=== PATIENT | female | born 1995 | race Caucasian/White ===

== ENCOUNTER → 2016-06-28 | Outpatient (REF) | payer OTHER | LOC: M SFHCLERA 13:43 | PROVIDERS: ATTEND Family Medicine | DX: R35.0 Frequency of micturition (principal) ==

== ENCOUNTER 2016-08-24 17:00 | Emergency (ER) | payer OTHER ==
[~2016-08-24] VITALS: Ht 152.4 cm; Wt 56.7 kg
[2016-08-24] MEDS ORDERED: ZYRT10CA PO (17:15)
[2016-08-24] MEDS ORDERED: ONDANSETRON 4MG/2ML VIAL (J2405) IV ONE (18:30)
[2016-08-24] MEDS ORDERED: MORPHINE 4 MG/ML 1ML SYRINGE IV ONE (18:30)
[2016-08-24 18:37] LABS: CONTROL LINE UCG INT CTR LINE PRESENT
[2016-08-24 19:16] LABS: BASO % 0.3 % (0.0-1.0); EOS % 0.8 % (0.0-3.0); LARGE UNSTAINED CELL % 0.7 % (0.0-4.0); LYMPH # 0.6 K/mm3 (1.5-6.5); LYMPH % 11.1 % (24.0-44.0); MEAN CORPUSCULAR HEMOGLOBIN 31.8 pg (27.0-33.0); MEAN CORPUSCULAR HGB CONC 32.8 g/dl (32.0-36.5); MEAN CORPUSCULAR VOLUME 96.9 fl (80.0-96.0); MONO # 0.2 K/mm3 (0.0-0.8); MONO % 3.5 % (0.0-5.0); NEUTROPHILS # 4.2 K/mm3 (1.8-7.7); NEUTROPHILS % 83.6 % (36.0-66.0); PLATELET COUNT, AUTOMATED 130 k/mm3 (150-450); RED CELL DISTRIBUTION WIDTH 11.9 % (11.5-14.5)
[2016-08-24 19:37] LABS: ALBUMIN/GLOBULIN RATIO 1.21 (1.00-1.93); ALKALINE PHOSPHATASE 54 U/L (45-117); ALT/SGPT 18 U/L (12-78); AMYLASE 76 U/L (25-115); ANION GAP 7 MEQ/L (8-16); AST/SGOT 11 U/L (15-37); BILIRUBIN,DIRECT 0.2 MG/DL (0.0-0.2); BILIRUBIN,TOTAL 0.6 MG/DL (0.2-1.0); BLOOD UREA NITROGEN 9 MG/DL (7-18); CALCIUM LEVEL 8.6 MG/DL (8.5-10.1); CARBON DIOXIDE LEVEL 27 MEQ/L (21-32); CHLORIDE LEVEL 105 MEQ/L (98-107); CREATININE FOR GFR 0.79 MG/DL (0.55-1.02); GLOMERULAR FILTRATION RATE > 60.0 (>60); GLUCOSE, FASTING 90 MG/DL (70-105); POTASSIUM SERUM 3.9 MEQ/L (3.5-5.1); SODIUM LEVEL 139 MEQ/L (136-145); TOTAL PROTEIN 7.3 GM/DL (6.4-8.2)
[2016-08-24] MEDS ORDERED: ISOVUE-370 76% 100ML VIAL (Q9967) As Ordered ONE (19:52)
--- NOTE | 2016-08-24 20:29 | REP ---
Clinical: Right-sided abdominal pain. Technique: Axial contrast enhanced images from the lung bases to the pubic symphysis using oral and 100 ml Isovue 370 intravenous contrast material with coronal and sagittal re-formations. Findings: Lung bases clear. Visualized heart and pericardium normal. Liver, spleen, pancreas, gallbladder, bilateral adrenal glands and kidneys are normal. The enteric system is without obstruction or acute inflammatory process. Normal terminal ileum and appendix identified in the right lower quadrant. Pelvis demonstrates normal bladder and uterus/right adnexa. An ovoid cystic structure in the left adnexa with central presumed calcified structure measures approximately 2.1 cm maximal diameter and may represent dermoid/teratoma. No pelvic fluid. No adenopathy. No free air. Vasculature normal. Musculoskeletal structures intact. Impression: 1. Suspected 2.1 cm left adnexal teratoma/dermoid cyst. 2. No acute intra-abdominal or pelvic pathology appreciated. Signed by Pb Verdin MD 08/24/2016 08:20 P
[2016-08-24 20:45] VITALS: BP 119/74
[2016-08-24] MEDS ORDERED: IBUP600T26 PO (21:16)
--- NOTE | 2016-08-25 07:16 | ED PDOC ---
Post-Departure Follow-Up dr lorenzo faxed formal report of ct abd/p for fu Shanell Singleton MD August 25, 2016 07:16
== END 2016-08-24 21:23 | disposition home or self-care (01) ==
LOC: M ED 18:12
DX: N83.8 Other noninflammatory disorders of ovary, fallopian tube and broad ligament (principal)
CPT/HCPCS: 36415; 74177; 80048; 80076; 81001; 82150; 83690; 84703; 85025; 96374; 96375; 99284; J2405; Q9967

== ENCOUNTER 2016-08-27 06:19 | Emergency (ER) | payer OTHER ==
[~2016-08-27] VITALS: Ht 152.4 cm; Wt 56.7 kg
[~2016-08-27 06:19] MED LIST: IBUP600T26 PO; ZYRT10CA PO
[2016-08-27] MEDS ORDERED: OXYC1TAB23 PO (06:40)
[2016-08-27] MEDS ORDERED: NORCO, ANEXSIA 5/325MG TABLET (HYDROcodone/ACETAMINOPHEN) PO ONE (07:00)
[2016-08-27] MEDS ORDERED: ONDANSETRON 4MG/2ML VIAL (J2405) IV ONE (07:00)
[2016-08-27] MEDS ORDERED: KETOROLAC 30 MG/ML VIAL (J1885) IV ONE (07:00)
[2016-08-27 07:50] LABS: BASO % 0.6 % (0.0-1.0); EOS # 0.1 K/mm3 (0.0-0.50); EOS % 1.1 % (0.0-3.0); LARGE UNSTAINED CELL # 0.1 K/mm3 (0.0-0.4); LARGE UNSTAINED CELL % 1.3 % (0.0-4.0); LYMPH # 1.2 K/mm3 (1.5-6.5); LYMPH % 17.9 % (24.0-44.0); MEAN CORPUSCULAR HEMOGLOBIN 32.6 pg (27.0-33.0); MEAN CORPUSCULAR HGB CONC 33.8 g/dl (32.0-36.5); MEAN CORPUSCULAR VOLUME 96.5 fl (80.0-96.0); MONO # 0.3 K/mm3 (0.0-0.8); MONO % 5.2 % (0.0-5.0); NEUTROPHILS # 4.7 K/mm3 (1.8-7.7); NEUTROPHILS % 73.8 % (36.0-66.0); PLATELET COUNT, AUTOMATED 160 k/mm3 (150-450); RED CELL DISTRIBUTION WIDTH 12.1 % (11.5-14.5); WHITE BLOOD COUNT 6.4 K/mm3 (4.0-10.0)
[2016-08-27 07:54] LABS: CALCIUM OXALATE CRYSTALS SMALL
[2016-08-27 07:55] LABS: CONTROL LINE UCG INT CTR LINE PRESENT
[2016-08-27 08:09] LABS: ALBUMIN/GLOBULIN RATIO 1.38 (1.00-1.93); ALKALINE PHOSPHATASE 54 U/L (45-117); ALT/SGPT 21 U/L (12-78); ANION GAP 7 MEQ/L (8-16); AST/SGOT 14 U/L (15-37); BILIRUBIN,DIRECT 0.1 MG/DL (0.0-0.2); BILIRUBIN,TOTAL 0.4 MG/DL (0.2-1.0); BLOOD UREA NITROGEN 10 MG/DL (7-18); CALCIUM LEVEL 8.6 MG/DL (8.5-10.1); CARBON DIOXIDE LEVEL 29 MEQ/L (21-32); CHLORIDE LEVEL 106 MEQ/L (98-107); CREATININE FOR GFR 0.85 MG/DL (0.55-1.02); GLOMERULAR FILTRATION RATE > 60.0 (>60); GLUCOSE, FASTING 97 MG/DL (70-105); POTASSIUM SERUM 3.5 MEQ/L (3.5-5.1); SODIUM LEVEL 142 MEQ/L (136-145); TOTAL PROTEIN 6.9 GM/DL (6.4-8.2)
[2016-08-27] MEDS ORDERED: CIPR500T89 PO (08:15)
[2016-08-27] MEDS ORDERED: NORCOTAB PO (08:15)
[2016-08-27] MEDS ORDERED: NS 1,000 ML IV ONE (08:15)
[2016-08-27] MEDS ORDERED: CIPROFLOXACIN 400 MG in APPROPRIATE DILUENT 1 EA IV ONE (08:15)
[2016-08-27 10:14] VITALS: BP 104/60
== END 2016-08-27 10:18 | disposition home or self-care (01) ==
LOC: M ED 07:16
DX: N10 Acute pyelonephritis (principal); R01.1 Cardiac murmur, unspecified; Z79.899 Other long term (current) drug therapy
CPT/HCPCS: 80048; 80076; 81001; 83690; 84703; 85025; 87086; 96361; 96365; 96375; 99283; J0744; J1885; J2405; J3360

== ENCOUNTER 2016-08-27 23:49 | Emergency (ER) | payer OTHER ==
[~2016-08-27] VITALS: Ht 165.1 cm; Wt 56.7 kg
[~2016-08-27 23:49] MED LIST changes: +CIPR500T89 PO; +NORCOTAB PO; +OXYC1TAB23 PO
[2016-08-28] MEDS ORDERED: KETOROLAC 30 MG/ML VIAL (J1885) IV ONE (01:30)
[2016-08-28] MEDS ORDERED: HYDROmorphone HCL 1 MG/ML SYRINGE (J1170) IV ONE (01:30)
[2016-08-28] MEDS ORDERED: ONDANSETRON 4MG/2ML VIAL (J2405) IV ONE (02:15)
[2016-08-28 02:23] LABS: BASO % 0.3 % (0.0-1.0); EOS # 0.1 K/mm3 (0.0-0.50); EOS % 0.9 % (0.0-3.0); LARGE UNSTAINED CELL # 0.1 K/mm3 (0.0-0.4); LARGE UNSTAINED CELL % 1.2 % (0.0-4.0); LYMPH % 14.5 % (24.0-44.0); MEAN CORPUSCULAR HEMOGLOBIN 32.6 pg (27.0-33.0); MEAN CORPUSCULAR HGB CONC 33.9 g/dl (32.0-36.5); MEAN CORPUSCULAR VOLUME 96.3 fl (80.0-96.0); MONO # 0.4 K/mm3 (0.0-0.8); MONO % 5.5 % (0.0-5.0); NEUTROPHILS # 5.4 K/mm3 (1.8-7.7); NEUTROPHILS % 77.7 % (36.0-66.0); PLATELET COUNT, AUTOMATED 140 k/mm3 (150-450); RED CELL DISTRIBUTION WIDTH 11.9 % (11.5-14.5); WHITE BLOOD COUNT 6.9 K/mm3 (4.0-10.0)
--- NOTE | 2016-08-28 02:30 | REPUSA ---
CLINICAL HISTORY: Abdominal pain. TECHNIQUE: Multiple axial, sagittal and coronal CT images were obtained through the abdomen and pelvi s without administration of oral or IV contrast material. COMMENTS: The liver is of uniform attenuation without mass or defect. There is no intra or extrahepatic biliary ductal dilatation. The spleen is normal. The gallbladder is within normal limits. The pancreas is of normal contour and attenuation characteristics. There is no evidence of adrenal mass. 3.5 mm obstructing stone in the left ureterovesical junction. Mild left hydroureteronephrosis. Mild diffuse thickening of the wall of the bladder. 1.5 cm calcified uterine fibroid. Uncomplicated clonic diverticulosis. There is no evidence for appendicitis. There is no bowel wall thickening. No evidence for small or la rge bowel obstruction. There is no evidence of abdominal ascites or lymphadenopathy. There is no evidence of intrinsic or extrinsic bladder mass. There is no pelvic ascites or lymphadeno francisco. Images of the lung bases show no evidence of pleural or parenchymal mass. There are no pleural effusi ons. The bony structures are free of lytic or blastic lesions. IMPRESSION: Obstructing stone at the left ureterovesical junction. Mild left hydroureteronephrosis. Calcified uterine fibroid. Thickened bladder. Underdistention versus mild cystitis. Mild large bowel fecal stasis. Thank you for your kind referral of this patient.
[2016-08-28 02:42] LABS: ANION GAP 8 MEQ/L (8-16); BLOOD UREA NITROGEN 10 MG/DL (7-18); CALCIUM LEVEL 8.6 MG/DL (8.5-10.1); CARBON DIOXIDE LEVEL 28 MEQ/L (21-32); CHLORIDE LEVEL 106 MEQ/L (98-107); CREATININE FOR GFR 0.94 MG/DL (0.55-1.02); GLOMERULAR FILTRATION RATE > 60.0 (>60); GLUCOSE, FASTING 90 MG/DL (70-105); POTASSIUM SERUM 3.4 MEQ/L (3.5-5.1); SODIUM LEVEL 142 MEQ/L (136-145)
[2016-08-28] MEDS ORDERED: NS 1,000 ML IV ONE ×2 (03:00→04:45)
[2016-08-28 06:21] VITALS: BP 122/78
== END 2016-08-28 06:24 | disposition home or self-care (01) ==
LOC: M ED 08-28 01:40
DX: N13.2 Hydronephrosis with renal and ureteral calculous obstruction (principal); D25.9 Leiomyoma of uterus, unspecified; Z79.899 Other long term (current) drug therapy
CPT/HCPCS: 74176; 80048; 85025; 96374; 96375; 99283; J1170; J1885; J2405

== ENCOUNTER 2016-09-02 10:32 | Inpatient (IN) | payer OTHER ==
[~2016-09-02] VITALS: Ht 152.4 cm; Wt 57.3 kg
[2016-09-02] MEDS ORDERED: IBUP600T26 PO (10:40)
[2016-09-02] MEDS ORDERED: METOCLOPRAMIDE INJ 10MG/2ML VIAL (J2765) IV ONE (11:45)
[2016-09-02] MEDS ORDERED: NS 1,000 ML IV ONE (11:45)
[2016-09-02 12:03] LABS: BASO % 0.1 % (0.0-1.0); EOS # 0.1 K/mm3 (0.0-0.50); EOS % 1.4 % (0.0-3.0); LARGE UNSTAINED CELL % 0.4 % (0.0-4.0); LYMPH # 0.4 K/mm3 (1.5-6.5); LYMPH % 3.7 % (24.0-44.0); MEAN CORPUSCULAR HEMOGLOBIN 32.3 pg (27.0-33.0); MEAN CORPUSCULAR HGB CONC 34.7 g/dl (32.0-36.5); MEAN CORPUSCULAR VOLUME 93.1 fl (80.0-96.0); MONO # 0.3 K/mm3 (0.0-0.8); MONO % 3.3 % (0.0-5.0); NEUTROPHILS # 8.2 K/mm3 (1.8-7.7); NEUTROPHILS % 91.2 % (36.0-66.0); PLATELET COUNT, AUTOMATED 151 k/mm3 (150-450)
[2016-09-02 12:16] LABS: CONTROL LINE HCG INT CTR LINE PRESENT
[2016-09-02 12:24] LABS: ALBUMIN 4.1 GM/DL (3.2-5.2); ALBUMIN/GLOBULIN RATIO 1.11 (1.00-1.93); BILIRUBIN,DIRECT 0.1 MG/DL (0.0-0.2); BILIRUBIN,TOTAL 0.5 MG/DL (0.2-1.0); CALCIUM LEVEL 9.5 MG/DL (8.5-10.1); CREATININE FOR GFR 3.71 MG/DL (0.55-1.02); GLOMERULAR FILTRATION RATE 16.3 (>60); POTASSIUM SERUM 3.9 MEQ/L (3.5-5.1); TOTAL PROTEIN 7.8 GM/DL (6.4-8.2)
[2016-09-02] MEDS ORDERED: ONDANSETRON 4MG/2ML VIAL (J2405) IV ONE (12:45)
[2016-09-02] MEDS ORDERED: CETI10TA PO (13:08)
[2016-09-02] MEDS ORDERED: CIPR500T3 PO (13:08)
[2016-09-02] MEDS ORDERED: IBUP800T23 PO (13:08)
[2016-09-02] MEDS ORDERED: MORPHINE 2 MG/ML 1ML SYRINGE IV ONE (13:15)
--- NOTE | 2016-09-02 13:19 | REP ---
Clinical: Renal colic. Comparison: 08/28/2016. Findings: Lung bases are clear. Liver, spleen, pancreas, gallbladder, bilateral adrenal glands and kidneys are normal for noncontrast evaluation. Possible 1 mm nonobstructing left renal calculus (image 43). Prior left-sided obstructive uropathy with 1 mm calculus at the ureterovesicle junction has resolved. The enteric system is without obstruction or acute inflammatory process. Normal terminal ileum and appendix identified in the right lower quadrant. Pelvis demonstrates normal bladder and age-appropriate uterus/adnexa. No pelvic fluid. No ascites. No free air. No adenopathy. Abdominal aorta normal. Musculoskeletal structures intact. Impression: 1. Essentially normal noncontrast CT of the abdomen and pelvis. 2. Possible 1 mm nonobstructing left renal calculus. 3. Prior left-sided obstructive uropathy with 1 mm calculus at the ureterovesicle junction has resolved. Signed by Pb Verdin MD 09/02/2016 01:10 P
[2016-09-02] MEDS ORDERED: ONDANSETRON 4MG/2ML VIAL (J2405) IV PRN (14:15)
[2016-09-02] MEDS ORDERED: MAALOX 30 ML SUSP *UDC PO PRN (14:15)
[2016-09-02] MEDS ORDERED: ACETAMINOPHEN TAB 650MG DOSE (2X325MG) PO PRN (14:15)
[2016-09-02] MEDS ORDERED: MORPHINE 2 MG/ML 1ML SYRINGE IV PRN (14:15)
[2016-09-02 15:20] VITALS: BP 117/81
[2016-09-02] MEDS: NS 1,000 ML IV SCH ×2 (16:29→22:13)
[2016-09-02] MEDS: PANTOPRAZOLE 40MG INJ (PROTONIX) (C9113) IV SCH (16:29)
[2016-09-02] MEDS: CIPROFLOXACIN 200 MG in APPROPRIATE DILUENT 1 EA IV SCH (16:30)
--- NOTE | 2016-09-02 16:41 | HPE ---
DATE OF ADMISSION: 09/02/2016 PRIMARY CARE PHYSICIAN: Dr. Rayne Mckeon CHIEF COMPLAINT: Nausea, vomiting and diarrhea, and abdominal pain. HISTORY OF PRESENT ILLNESS: Ms. Toledo is a 21-year-old female with past medical history of ovarian cyst, as well as hydronephrosis and nephrolithiasis, who presented to the emergency room (ER) due to experiencing abdominal pain as well as several episodes of vomiting, diarrhea and being nauseated. The patient expressed that the symptoms started yesterday when she started having more than 10 episodes of vomiting. The patient expressed that the vomit mostly contained undigested food and bile. However, the patient denies noticing any blood in the vomit. The patient also expressed that the vomit was not projectile. The patient also had several episodes of diarrhea; however, the patient denies noticing any blood in the stool, and it was mostly watery diarrhea. The patient presented to the ER on 08/24 with abdominal pain and again on 08/27/2016, and was diagnosed with pyelonephritis. The patient was started on ciprofloxacin. However, the patient expressed that she has only taken it for four days. Again, the patient presented on 08/28/2016, and a CT which was performed on that day indicated a 3.5 mm obstructing stone in the left ureterovesical junction. The patient was sent home with medications including ibuprofen to help with the pain. The patient expressed that she took ibuprofen last night 800, and before that two days ago, again 800 mg. The patient is also taking Zyrtec. At the time of admission, it was found that the patient has abnormal renal function. ALLERGIES: PENICILLIN causes rash and shortness of breath. PAST MEDICAL HISTORY: 1. History of ovarian cyst. 2. Abdominal pain. 3. Nephrolithiasis. 4. Hydronephrosis. PAST SURGICAL HISTORY: 1. PE tubes 2012. 2. Nasal surgery 2014. HOME MEDICATIONS: - cetirizine 10 mg by mouth at bedtime - ciprofloxacin 500 mg by mouth twice a day - ibuprofen 800 mg by mouth every hours as needed for pain REVIEW OF SYSTEMS: The patient expressed that she has been having fever, chills, and night sweats. However, the patient did not take her temperature. The patient denies weight loss or weight gain. HEENT: The patient denies acute vision or hearing changes. However, the patient expressed that she has been experiencing lightheadedness and dizziness when she was vomiting. The patient denies problem with chewing food or sinusitis. NECK: The patient denies lumps, bumps or decreased range of motion of her neck. HEART: The patient expressed that she has been experiencing palpitations during vomiting; however, the patient denies chest pain, racing or skipping heartbeat. LUNGS: The patient denies shortness of breath or coughing. ABDOMEN: The patient expressed that she has been experiencing abdominal pain mostly in the mid-abdomen area that increased with vomiting. The patient also has diarrhea and nauseated. However, the patient denies any hematochezia, hemoptysis, or melena. NEUROLOGIC: The patient has denies history of transient ischemic attack (TIA), cerebrovascular accident (CVA) or seizure-type activity. PHYSICAL EXAMINATION: VITAL SIGNS: Temperature 98.8, pulse 90, respiratory rate 16, blood pressure 126/90, pulse oximetry 100% on room air. GENERAL APPEARANCE: The patient was lying in bed in no acute distress. The patient was awake, alert, and oriented to time, place, and person. HEENT: Normocephalic, atraumatic. Pupils are equal, reactive to light. Oral mucosa is moist. NECK: Soft, supple. No lymphadenopathy, no thyromegaly, no jugular venous distention (JVD). HEART: Regular rate and rhythm, normal S1, S2. ABDOMEN: Soft, tender to palpation mostly in the mid-abdomen area and the left lower quadrant. Positive bowel sounds in all quadrants. However, no guarding or rebound. EXTREMITIES: No lower extremity edema. Plus two pulses in both lower extremities and normal sensation in both upper and lower extremities. NEUROLOGIC: Cranial nerves II through XII intact. No focal deficiencies. LABORATORY DATA: White blood cells 9, red blood cells 4.11, hemoglobin 13.3, hematocrit 38.3, MCV 93.1, MCH 32.3, MCHC 34.7, RDW 12, platelet count 151. Neutrophil percentage 91.2, lymphocyte percentage 3.7, monocyte percentage 3.3, eosinophil percentage 1.4, basophils percentage 0.1, leukocyte percentage 0.4. Sodium 139, potassium 3.9, chloride 106, carbon dioxide 24, anion gap 9, BUN 19, creatinine 3.71, glomerular filtration rate 16.3, fasting glucose 153, calcium 9.5, total bilirubin 0.5, direct bilirubin 0.1, AST 18, ALT 21, alkaline phosphatase 59, protein 7.8, albumin 4.1. HCG negative. UA: Urine color yellow. Urine appearance hazy. Urine pH 6. Urine specific gravity 1.009. Urine protein negative. Urine glucose negative. Urine ketones 1+. Urine blood negative. Urine nitrite negative. Urine bilirubin negative. Urine urobilinogen 0.2, urine leukocyte esterase negative, urine white blood cells 10, urine red blood cells 2, urine hyaline casts zero, urine bacteria 1+, urine squamous epithelial 8, urine mucus small. IMAGING: CT abdomen and pelvis without contrast essentially normal noncontrast CT of the abdomen and pelvis. Possible 1 mm nonobstructing left renal calculus. Prior left-side obstructive uropathy with 1 mm calculus at the ureterovesical junction has resolved. ASSESSMENT AND PLAN: 1. Acute renal failure. This is possibly secondary to post azotemia caused by uropathy secondary to renal calculus that has been passed. Also, it could be secondary to medication including ibuprofen. We have stopped all the nephrotoxic medications. Will continue patient on ceftriaxone; however, we switched to intravenous (IV). I have consulted Dr. Paul. Appreciate Dr. Paul's recommendation. At the patient is on IV fluid. The patient also on a clear diet. We will continue monitoring the patient for any abnormal symptoms. 2. Gastrointestinal (GI) prophylaxis. The patient is on Protonix 40 mg every 24 hours IV. Also, we will continue the patient on Carafate 1 gram before meals by mouth. 3. Seasonal allergies. We will continue the patient on Zyrtec 10 mg at bedtime by mouth. 4. Deep venous thrombosis (DVT) prophylaxis. We will continue the patient on heparin 5000 units every 12 hours subcutaneously. 5. Nausea and vomiting. At this time, the patient is stable. We have started the patient on Mylanta. The patient is also on Protonix and Zofran, as well as Carafate. 6. Diarrhea. We have ordered GI panel and the result is pending at this time. My preceptor for this patient encounter was Dr. Nadege Anton. The preceptor was physically present in the building during the encounter and was fully available as needed. All aspects of the patient interview, examination, medical decision making process, and medical care plan development were reviewed and approved by the preceptor. The preceptor is aware and concurs with the plan as stated in the body of this note and will attest to such by his/her co-signature.
[2016-09-02] MEDS: SUCRALFATE 1 GM TAB PO SCH (18:09)
[2016-09-02] MEDS: HEPARIN SOD (PORCINE) 5000 UNITS/ML VIAL SQ SCH (18:09)
--- NOTE | 2016-09-02 19:46 | REP ---
Clinical: Abnormal renal function with recently passed left ureteral stone. Comparison: CT dated 09/02/2016, 08/28/2016. Findings: The bilateral kidneys are normal in contour, size, echogenicity and reniform shape without hydronephrosis, nephrolithiasis, cystic or renal mass lesion. No perinephric fluid collections are identified. Right kidney measures 11.3 x 5.1 x 5.7 cm. Left kidney measures 10.7 x 5.5 x 5.2 cm. The distal left ureter approaching the bladder appears mildly prominent but may be secondary to the recently passed stone and associated prior hydroureteronephrosis. The bladder is normal and bilateral ureteral jets are identified. Impression: Normal bilateral kidneys without hydronephrosis. Signed by Pb Verdin MD 09/02/2016 07:38 P
[2016-09-02 20:00] VITALS: BP 121/76
[2016-09-02] MEDS: PERCOCET 5MG/325MG TAB PO PRN (20:16)
[2016-09-02] MEDS: CETIRIZINE (ZyrTEC) 10 MG TAB PO SCH (20:16)
[2016-09-02] MEDS ORDERED: CIPROFLOXACIN 500 MG TAB PO SCH (21:00)
[2016-09-03] MEDS: NS 1,000 ML IV SCH ×2 (04:35→11:35)
[2016-09-03] MEDS: CIPROFLOXACIN 200 MG in APPROPRIATE DILUENT 1 EA IV SCH ×2 (04:36→15:38)
[2016-09-03 04:44] VITALS: BP 120/75
[2016-09-03] MEDS: HEPARIN SOD (PORCINE) 5000 UNITS/ML VIAL SQ SCH ×2 (05:11→18:00)
[2016-09-03 07:01] LABS: MEAN CORPUSCULAR HEMOGLOBIN 31.8 pg (27.0-33.0); MEAN CORPUSCULAR HGB CONC 33.6 g/dl (32.0-36.5); MEAN CORPUSCULAR VOLUME 94.6 fl (80.0-96.0); RED CELL DISTRIBUTION WIDTH 12.2 % (11.5-14.5); WHITE BLOOD COUNT 8.2 K/mm3 (4.0-10.0)
[2016-09-03 07:17] LABS: ALBUMIN 3.3 GM/DL (3.2-5.2); CALCIUM LEVEL 8.2 MG/DL (8.5-10.1); CREATININE FOR GFR 2.54 MG/DL (0.55-1.02); GLOMERULAR FILTRATION RATE 25.2 (>60); MAGNESIUM LEVEL 1.7 MG/DL (1.8-2.4); PHOSPHORUS LEVEL 3.8 MG/DL (2.5-4.9); POTASSIUM SERUM 3.7 MEQ/L (3.5-5.1)
[2016-09-03] MEDS ORDERED: MAG SULF 1GM/100ML (MAG RUN) 1 GM in APPROPRIATE DILUENT 1 EA IV ONE (08:00)
[2016-09-03] MEDS: SUCRALFATE 1 GM TAB PO SCH ×3 (09:29→18:20)
[2016-09-03 09:31] VITALS: BP 114/81
[2016-09-03] MEDS: PERCOCET 5MG/325MG TAB PO PRN (11:34)
--- NOTE | 2016-09-03 13:38 | IPNPDOC ---
Text Note Date of Service The patient was seen on 09/03/16. NOTE Subjective: Patient is a 21 year old female with a PMHx of Ovarian Cyst, Nephrolithiasis (w/ hydronephrosis) who presented to the ER with nausea, vomiting, dairrhea and abdominal pain. She noted her symptoms occurred for 2 days. She had 2 visitis to the ER in the last 1 month. On 08/24 with abdominal pain and was diagnosed with pyelonephritis and was prescribed Ciprofloxacin. She presented on 08/28 again and was found to have a 3.5mm obstructing stone. She was given ibuprofen and sent home. She presents again with abdominal pain and was found to have abnormal renal function and admitted to medical floor. Patient was seen and examined at the bedside. Currently she has no complaints. Objective: Vitals (See below) General: Lying in bed, no acute distress, comfortable, AAOx3 HEENT: NC, AT CVS: RRR, +S1S2 Lungs: Fair air entry b/l, -w/r/r Abdomen: Soft, ND, Mild tenderness at epigastrium, +BSx4 Extremities: +PPx4, - Edema, - Calf tenderness Assessment and plan: 1. Acute renal failure - likely 2/2 pre-renal etiology 2/2 hypovolemia 2/2 vomiting and diarrhea, possibly renal etiology 2/2 medications (ibuprofen), less likely post-renal 2/2 obstruction from stones - Presented with nausea, vomiting, diarrhea and abdominal pain - Physical reveals epigastric tenderness - Labs reveal elevation in Cr from baseline (Baseline of 0.7-0.9) - No elevation in amylase / lipase - FENa of 1.1% - Will avoid nephrotoxic medications - c/w IV fluid hydration - Nephrology (Dr. Paul) on consult - appreciate their input - Will advance diet as tolerated 2. Recent history of pyelonephritis - will complete treatment with Ciprofloxacin 3. Nausea, vomiting and diarrhea - likely 2/2 gastroenteritis - symptoms resolved - GI panel negative - c/w IV fluid hydration - c/w Zofran, Protonix 4. Seasonal allergies - c/w Cetirizine 5. DVT prophylaxis - c/w Heparin VS,Fishbone, I+O VS, Fishbone, I+O Laboratory Tests 09/03/16 06:38 Red Blood Count 3.86 L, Mean Corpuscular Volume 94.6, Mean Corpuscular Hemoglobin 31.8, Mean Corpuscular Hemoglobin Concent 33.6, Red Cell Distribution Width 12.2, Anion Gap 6 L Vital Signs Date Time Temp Pulse Resp B/P (MAP) Pulse Ox O2 Delivery O2 Flow Rate FiO2 09/03/16 12:04 20 09/03/16 09:31 99.3 83 114/81 (92) 99 Room Air I&O- Last 24 Hours up to 6 AM 09/03/16 06:00 Intake Total 3920 ml Output Total 1825 ml Balance 2095 ml ALY COOL MD September 03, 2016 13:38
[2016-09-03] MEDS: PANTOPRAZOLE 40MG INJ (PROTONIX) (C9113) IV SCH (15:39)
[2016-09-03 15:44] VITALS: BP 122/75
[2016-09-03 20:00] VITALS: BP 116/74
[2016-09-03] MEDS: CETIRIZINE (ZyrTEC) 10 MG TAB PO SCH (20:28)
--- NOTE | 2016-09-03 21:09 | CR ---
DATE OF CONSULTATION: 09/03/2016 REQUESTING PHYSICIAN: Ari Groves MD CONSULTING PHYSICIAN: Guerrero Paul MD REASON FOR CONSULTATION: Management of acute kidney injury CHIEF COMPLAINT: The patient presented to the emergency room yesterday with nausea, vomiting, diarrhea and abdominal pain. HISTORY OF PRESENT ILLNESS: Le Toledo is a 21-year-old female with past medical history of nephrolithiasis, history of ovarian cyst and recurrent urinary tract infections (UTIs) in the past. She presented to the emergency room yesterday with pain in the epigastrium, which was radiating to the back; it was almost a 7/10 in intensity associated with nausea and vomiting. She almost had 10 episodes of vomiting. She denies any chills and rigors. She also had some loose stools. There were relieving factors. The patient was unable to keep any food down. The patient also reports that she was seen in the emergency room on August 24 and August 27. She was diagnosed with pyelonephritis and given ciprofloxacin. Later on, she was found to have an obstructing stone on the CAT scan. The patient arrived in the emergency room yesterday; she was found to have a creatine of 3.7. Nephrology was called for help in the management of acute kidney injury. A CAT scan of the abdomen and pelvis done yesterday. The most recent CAT scan showed there was a small nonobstructing 1 mm stone in the left kidney and left-sided ureterovesical junction stone had moved. It was not seen on this imaging. The patient was started on IV fluids and IV antibiotics yesterday. She reports that since yesterday her symptoms are a lot better and her creatine is also coming down. It was 3.7 yesterday; it is down to 2.54 today. PAST MEDICAL HISTORY: 1. Ovarian cyst. 2. Recurrent urinary tract infections (UTIs). 3. Abdominal pain. 4. Kidney stones. PAST SURGICAL HISTORY: History of nasal surgery in 2015. No history of kidney surgery or removal of stones in the past. ALLERGIES: The patient is allergic to PENICILLINS. HOME MEDICATIONS BEFORE ADMISSION: The patient was taking ciprofloxacin 500 mg by mouth twice a day and she was taking ibuprofen 800 mg every 8 hours for pain and she was taking cetirizine 10 mg at bedtime as well. REVIEW OF SYSTEMS: CONSTITUTIONAL: The patient denies any fevers, chills or rigors. EYES: She denies any blurry vision or double vision. ENT: She denies any dysphagia, odynophagia or ear discharge. CARDIOVASCULAR: She denies any chest pain or palpitations. RESPIRATORY: She denies any shortness of breath, wheezing or cough. GASTROINTESTINAL (GI): She reported nausea, vomiting, abdominal pain which is significantly getting better at this time. GENITOURINARY (): The patient reports history of multiple urinary tract infections (UTIs), but she denies any dysuria or hematuria at this time MUSCULOSKELETAL: She denies any muscle aches and pains. CENTRAL NERVOUS SYSTEM: She denies any weakness, strokes or seizures in the past. PSYCHIATRY: She denies any depression or anxiety. SKIN: Denies any rash or ulcers. HEMATOLOGIC/ONCOLOGIC: She denies any history of anemia or easy bruising tendency. PHYSICAL EXAMINATION: GENERAL: The patient is awake, alert, and oriented times three, laying in bed in no apparent distress. VITAL SIGNS: Temperature is 98.9 degrees Fahrenheit, blood pressure is 122/75, pulse is 76, respiratory rate of 18, saturating 99% on room air. Intake and output: Urine output recorded as monitored yesterday, 3 liters so far today since overnight. Weight on the bed scale si 56 kg. HEAD AND NECK EXAM: Extraocular muscles intact. Pupils equally round and reactive to light. Mucous membranes are moist. Neck is supple. There is no jugular venous distension (JVD). CARDIOVASCULAR: S1, S2 regular rate. No murmur, rub or gallop. RESPIRATORY: Chest is clear to auscultation bilaterally. Bilateral equal air entry. No rales or rhonchi. ABDOMEN: Soft, positive bowel sounds. Nontender, no ascites. No organomegaly. No costovertebral angle (CVA) tenderness. EXTREMITIES: No clubbing or cyanosis. Pulses are 2+. CENTRAL NERVOUS SYSTEM: No focal neurological deficit. Power is 5/5 in all extremities. SKIN: No rash or ulcers. LYMPH NODE: No cervical, axillary or inguinal lymphadenopathy. LABORATORY REVIEW: Complete blood count (CBC) showed a white blood count (WBC) of 8.2, hemoglobin 12.2, platelets of 133. Basic metabolic panel (BMP) showed sodium 144, potassium 3.7, chloride 111, bicarbonate 27, BUN is 14, creatine is 2.5, it was 3.7 yesterday, calcium is 8.2, phosphorous is 3.8, magnesium is 1.7. CURRENT IMAGING: A renal ultrasound done yesterday showed normal bilateral kidneys without hydronephrosis. Had a CAT scan done yesterday of the abdomen and pelvis without contrast showed normal contrast of the abdomen and pelvis. 1 mm non-obstructing left renal calculus and left-sided obstructive uropathy has resolved. ASSESSMENT: 21-year-old female had history of kidney stones, admitted this time with intractable nausea and vomiting, acute kidney injury. PLAN: 1. Acute kidney injury. It is most likely secondary to left-sided obstructing uropathy, dehydration, intractable nausea and vomiting, volume depletion and use of ibuprofen and nonsteroidal antiinflammatory drugs (NSAID) pain medications have been stopped. The patient has been started on aggressive IV fluid hydration. Creatine is coming down. I am going to decrease the IV fluid rate to 75 mL an hour. The patient is tolerating the liquid diet as well. Continue to monitor for renal improvement. 2. Intractable nausea and vomiting. I have checked the serum amylase and lipase, they are negative. Pain in the abdomen might have been secondary to left-sided obstructive uropathy. The patient most likely has passed a kidney stone at this time. Continue pain medication at this time. Avoid nonsteroidal antiinflammatory drugs (NSAID) pain medications. Opioids will be okay. Symptoms are getting better. Diet can be advanced to the regular diet. 3. Recurrent urinary tract infections (UTIs). The patient is currently on IV ciprofloxacin. Dose has been adjusted according to the patient's renal function at this time. 4. Hypomagnesemia. The patient has already been given magnesium sulfate 1 gram IV times one does today morning. 5. Kidney stones. The patient has a 1 mm nonobstructing kidney stone on the left side and she most likely passed another kidney stone from left side as well. The patient will need to followup with nephrology services as outpatient. We shall do all the stone work up including 24 hour urine stone risk profile; and depending upon her stone risk profile, we shall put her on medications. 6. Hypocalcemia. I shall give the patient a dose of calcium gluconate 1 gram IV. Thank you for involving us in the care of this patient. We shall be happy to follow the patient along with you tomorrow morning. Plan of care was discussed with the medical billing associate yesterday.
[2016-09-04] VITALS: BP 107/65
[2016-09-04] MEDS: NS 1,000 ML IV SCH (02:04)
[2016-09-04 04:15] VITALS: BP 113/59
[2016-09-04] MEDS: CIPROFLOXACIN 200 MG in APPROPRIATE DILUENT 1 EA IV SCH (04:29)
[2016-09-04] MEDS: HEPARIN SOD (PORCINE) 5000 UNITS/ML VIAL SQ SCH (05:47)
[2016-09-04 06:25] LABS: MEAN CORPUSCULAR HEMOGLOBIN 31.8 pg (27.0-33.0); MEAN CORPUSCULAR VOLUME 93.8 fl (80.0-96.0); RED CELL DISTRIBUTION WIDTH 11.9 % (11.5-14.5)
[2016-09-04 06:39] LABS: ALBUMIN 3.1 GM/DL (3.2-5.2); CALCIUM LEVEL 8.3 MG/DL (8.5-10.1); CREATININE FOR GFR 1.45 MG/DL (0.55-1.02); GLOMERULAR FILTRATION RATE 48.1 (>60); MAGNESIUM LEVEL 1.7 MG/DL (1.8-2.4); PHOSPHORUS LEVEL 3.9 MG/DL (2.5-4.9); POTASSIUM SERUM 3.2 MEQ/L (3.5-5.1)
[2016-09-04] MEDS: SUCRALFATE 1 GM TAB PO SCH (07:40)
[2016-09-04] MEDS ORDERED: MAG SULF 1GM/100ML (MAG RUN) 1 GM in APPROPRIATE DILUENT 1 EA IV ONE (07:45)
[2016-09-04] MEDS ORDERED: POTASSIUM CHLORIDE 10 MEQ SR TABLET PO ONE (07:45)
[2016-09-04 08:00] VITALS: BP 147/77
[2016-09-04 08:30] VITALS: BP 125/64
[2016-09-04] MEDS ORDERED: CALC500C16 PO (10:13)
[2016-09-04] MEDS ORDERED: CALCIUM GLUCONATE 1,000 MG in D5W MINI-BAG PLUS 100 ML IV ONE (11:00)
--- NOTE | 2016-09-04 15:11 | DS.PDOC ---
Discharge Summary General Date of Admission September 02, 2016 at 14:04 Date of Discharge 09/04/16 Attending Physician: ARI GROVES MD Specialist/Consultants Involve PCP: Dr. Rayne Mckeon Discharge Summary Consults: Dr. Guerrero Paul Nephrology Discharge diagnosis: Intractable nausea and vomiting--Resolved Acute kidney injury--Resolving Nephrolithiasis--Resolved Gastroenteritis/Diarrhea--Resolved Secondary diagnosis: Hydronephrosis Pyelonephritis Hypomagnesemia Hypokalemia Hypocalcemia Nephrolithiasis history Ovarian cyst Recurrent urinary tract infections Abdominal pain Hospital course: This is a 21-year-old female who presented to the ED on September 02 for epigastric pain that radiated to the back associated with nausea and vomiting. She also reported some loose stools. Patient was not able to tolerate PO without vomiting. She was then seen in the emergency department on August 24 as well , was diagnosed with pyelonephritis, found to have an obstructing stone on CT scan, and was placed on ciprofloxacin. September 02, the patient was found to have a creatinine of 3.7, and CT scan on 09/02 showed a small nonobstructing 1 mm stone nonobstructing left renal calculus and a left-sided ureterovesical junction stone that has resolved. Urine electrolytes were also obtained and showed a FeNa of 1.1% suggesting possibly a prerenal etiology. Urinalysis was done and remarkable for 1+ ketones, 10 white blood cells, 1+ bacteria, and 8 squamous epithelial cells. A renal ultrasound was also performed which was normal. The patient was admitted for intractable nausea and vomiting. HCG was negative. Patient had developed acute renal failure/acute kidney injury most likely secondary to the left-sided stone causing an obstructive uropathy, dehydration, intractable nausea and vomiting, hypovolemia, and ibuprofen/NSAIDs induced PERFECTO. Nephrology was consulted and patient was started on IV fluid hydration, nephrotoxic medications were discontinued, and renal function was monitored. Was placed on a clear liquid diet. Amylase and lipase were also tested and were negative. He was also speculated by the sprayer hand that abdominal pain could' ve been secondary to left-sided obstructive uropathy and the passage of a kidney stone. Pain control was achieved with Percocet, Tylenol, and morphine. Was given Zofran for nausea. DVT prophylaxis was given with heparin. GI prophylaxis was given with Protonix and Carafate. Patient was also placed on IV ciprofloxacin appropriate dose adjustments. Hypomagnesemia and hypokalemia were monitored and electrolytes were repleted. Creatinine function improved and creatinine bubble has been progressively decreasing from initial. Patient was also found to have some hypocalcemia for which patient was given calcium gluconate IV for. GI panel was ordered for patient's complaint of diarrhea which was negative. Eventually, diarrhea had resolved. Patient is asymptomatic today and is hemodynamically stable. Progress note on date of discharge: Subjective: Patient seen and examined at bedside. Patient feeling well today. Denies fevers , chills, headache, dizziness, lightheadedness, chest pain, shortness of breath, abdominal pain, back pain, dysuria, hematuria, hematochezia. Admits to some swelling in her fingers from the IV fluids. Patient states she is ready to go home and wants to know when she can. Objective: Vitals: Temperature 99.3, pulse 75, respiratory rate 20, blood pressure 113/59, pulse ox: 96% room air General: Awake, alert, oriented 3. Pleasant and cooperative young adult female in no acute distress, lying comfortably in bed. HEENT: Normocephalic atraumatic, grossly normal hearing bilaterally, sclera non- icteric, nose without external lesions. Neck: Supple. Chest: Symmetrical chest rise bilaterally. Heart: Regular rate and rhythm, normal S1-S2. No murmurs, rubs, clicks or gallops Lungs: Clear to auscultation bilaterally. No wheezes, rales or rhonchi Abdomen: Active bowel sounds, soft, nontender, nondistended, no masses to palpation. Integumentary: No rashes or lesions noted anywhere. Extremities: No edema in lower extremities bilaterally. Neurological: No focal neurological deficits appreciated bilaterally. Vascular: +2 radial pulses bilaterally. Labs: Significant for creatinine of 1.45 down from 2.54 yesterday, magnesium of 1.7, hemoglobin of 11.5 from 12.2 yesterday and platelets of 133. Please see below for full labs. Imaging: CT of the abdomen/pelvis without contrast done on 09/02: Showed a possible 1 mm nonobstructing left renal calculus. Prior left-sided obstructive uropathy with 1 mm calculus at ureterovesical junction has resolved. Renal ultrasound: Normal. Assessment: This is a 21-year-old female with past medical history significant for urinary tract infections, nephrolithiasis, pyelonephritis who presented was was admitted for intractable nausea and vomiting. Was admitted for and found to have acute kidney injury most likely secondary to a combination of prerenal etiology and obstructive uropathy from hypovolemia, obstructing stone in L kidney, and NSAID/ibuprofen induced. Also presented with gastroenteritis which has resolved. Disposition: Home. Follow-up: With Dr. Paul Nephrology in 2 weeks. Follow up with PCP within 1-2 weeks. Continue medication regimen and calcium carbonate tablets as prescribed. Activity: As tolerated. Diet: Regular with increased fluids recommended. Medications on discharge: Please see below. Time spent on discharge: 35 minutes. Vital Signs/I&Os Vital Signs Date Time Temp Pulse Resp B/P (MAP) Pulse Ox O2 Delivery O2 Flow Rate FiO2 09/04/16 08:30 85 18 125/64 (84) 100 Room Air 09/04/16 08:00 98.8 I&O- Last 24 Hours up to 6 AM 09/04/16 06:00 Intake Total 3245 ml Output Total 3945 ml Balance -700 ml Laboratory Data Labs 24H Laboratory Tests 2 09/04/16 06:15: Blood Urea Nitrogen 7, Creatinine 1.45H, Sodium Level 141, Potassium Level 3.2L , Chloride Level 107, Carbon Dioxide Level 26, Anion Gap 8, Glomerular Filtration Rate 48.1L, Calcium Level 8.3L, Phosphorus Level 3.9, Magnesium Level 1.7L, Albumin 3.1L CBC/BMP Laboratory Tests 09/04/16 06:15 Red Blood Count 3.61 L, Mean Corpuscular Volume 93.8, Mean Corpuscular Hemoglobin 31.8, Mean Corpuscular Hemoglobin Concent 34.0, Red Cell Distribution Width 11.9, Anion Gap 8 Discharge Medications Scheduled Calcium Carbonate (Calcium Carbonate) 500 Mg Chw, 500 MG PO BID Cetirizine HCl (Cetirizine HCl) 10 Mg Tab, 10 MG PO QHS, (Reported) Allergies Coded Allergies: Penicillins (Verified Allergy, Severe, RASH, SHORTNESS OF BREATH, 09/02/16) GME ATTESTATION GME ATTESTATION My preceptor for this patient encounter was Dr. Ari Groves, and was physically present in the building during the encounter and was fully available. As needed, all aspects of the patient interview, examination, medical decision making process, and medical care plan development were reviewed and approved by the preceptor. Preceptor is aware and concurs with the plan as stated in the body of this note and will attest to such by his/her cosignature. JAYLAN RAYMUNDO OGME-1 September 04, 2016 15:03
--- NOTE | 2016-09-04 16:55 | IPN ---
DATE: 09/04/2016 SUBJECTIVE: Patient was seen and examined at the bed side today in the morning. She feels much better. She reports that nausea and vomiting and pain in the abdomen is better. Her renal function is also improving. She is afebrile, hemodynamically stable. REVIEW OF SYSTEMS: Patient denies any fevers, chills, rigors, headache, nausea, vomiting, chest pain, shortness of breath, pain in the abdomen, constipation or diarrhea. The rest of the review of systems is negative. OBJECTIVE: VITAL SIGNS: Temperature is 98.8 degree Fahrenheit. Blood pressure 147/77, pulse 85, respiratory rate 18, saturating 99% on room air. INTAKE AND OUTPUT: Urine output recorded at 4.3 liters, 2.1 liters so far today since overnight. PHYSICAL EXAMINATION: GENERAL: Patient is awake, alert, and oriented times three. Sitting in the bed in no apparent distress. HEAD AND NECK EXA: Extraocular muscles intact. Pupils equal, round, reactive to light. Mucous membranes are moist. Neck is supple. There is no JUGULAR VENOUS DISTENTION. CARDIOVASCULAR: S1, S2, regular rate. No murmur, rub or gallop. RESPIRATORY: Chest is clear to auscultation bilaterally. Bilateral equal air entry. No rales or rhonchi. ABDOMEN: Soft, positive bowel sounds, non-tender. No ascites. No CVA tenderness. EXTREMITIES: No clubbing or cyanosis. Pulses are 2+. CENTRAL NERVOUS SYSTEM: No focal neurologic deficit. Power 5/5 in all extremities. LABORATORY DATA: CBC showed WBC 5, hemoglobin 11.5, platelets 133. BMP: Sodium 141, potassium 3.2, chloride 107, bicarbonate 26, BUN 7, creatinine 1.4, calcium 8.3, magnesium 1.7, phosphorous 3.9, albumin 3.1. CURRENT MEDICATIONS: Patient's medications were all reviewed by me. She was given a dose of Mag Sulfate 1 gram IV, calcium gluconate 1 gram IV was ordered this morning. She continues to be on IV fluid and she was given a dose of potassium chloride one dose today. ASSESSMENT: 21 year old female with history of kidney stones admitted this time with intractable nausea and vomiting and acute kidney injury. PLAN: 1. Acute kidney injury. Patient most likely had left-sided obstructing uropathy and she does report she passed a stone. Nausea and vomiting has improved. Renal function is improving. Continue to avoid NSAIDs at this time. IV fluids can be stopped. 2. Hypomagnesemia. Patient is getting a gram of magnesium sulfate IV times one today. 3. Hypocalcemia. Patient is getting calcium gluconate 1 gram IV. Patient can be given calcium and vitamin D as outpatient. 4. Kidney stones. The patient has a 1 mm nonobstructing kidney stone on the left side on the recent imaging, and patient also reports that she likely passed a kidney stone last night as well. The patient will need to followup in the clinic for further work up of kidney stones. DISCHARGE PLANNING: It is okay to discharge the patient from nephrology standpoint. She can follow up as outpatient and her medications will be optimized as outpatient. GIAN
== END 2016-09-04 12:30 | disposition home or self-care (01) | DRG 683 ==
LOC: M ED 11:33 → M ED INP 14:04 → M PED 15:15
PROVIDERS: ADMIT Hospitalist; ATTEND Internal Medicine
DX: N17.9 Acute kidney failure, unspecified (principal); N13.8 Other obstructive and reflux uropathy; R11.2 Nausea with vomiting, unspecified; N10 Acute pyelonephritis; N13.30 Unspecified hydronephrosis; N20.0 Calculus of kidney; K52.9 Noninfective gastroenteritis and colitis, unspecified; E83.42 Hypomagnesemia; E87.6 Hypokalemia; E83.51 Hypocalcemia; E86.1 Hypovolemia; Z88.0 Allergy status to penicillin; Z79.899 Other long term (current) drug therapy; R10.9 Unspecified abdominal pain

== ENCOUNTER → 2016-10-06 | Outpatient (REF) | payer OTHER ==
[~2016-10-06] MED LIST changes: +CALC500C16 PO; +CETI10TA PO; +CIPR-249 PO; +CIPR500T3 PO; -CIPR500T89 PO; +IBUP-1022 PO; +IBUP1TAB7 PO; -IBUP600T26 PO
== END ==
LOC: M SFHCLERA 12:55
PROVIDERS: ATTEND Physician Assistant
DX: R30.0 Dysuria (principal)

== ENCOUNTER → 2016-10-06 | Outpatient (CLI) | payer OTHER ==
--- NOTE | 2016-10-06 12:36 | REP ---
Clinical: Right flank pain. Comparison: 09/02/2016. Findings: Lung bases are clear. Visualized heart and pericardium normal. Liver, spleen, pancreas, gallbladder, bilateral adrenal glands and kidneys are normal. Specifically, no perinephric stranding, hydroureteronephrosis, intrarenal or obstructing ureteral calculi are identified. The enteric system is without obstruction or acute inflammatory process. A normal terminal ileum and appendix are identified in the right lower quadrant. Pelvis demonstrates normal bladder and age-appropriate uterus/right adnexa. 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 No ascites. No adenopathy. No free air. Abdominal aorta normal. Musculoskeletal structures are intact. Impression: 1. No acute abdominopelvic pathology appreciated. 2. Specifically, normal appearance to the urinary tract system. 3. Left ovarian teratoma again identified. Signed by Pb Verdin MD 10/06/2016 12:27 P
== END ==
LOC: M RAD 11:56
PROVIDERS: ATTEND Physician Assistant
DX: R10.9 Unspecified abdominal pain (principal)
CPT/HCPCS: 74176; 87086; G0463

== ENCOUNTER → 2017-02-23 | Outpatient (CLI) | payer OTHER ==
--- NOTE | 2017-02-23 15:35 | REP ---
Clinical: Anatomical re-evaluation. Comparison: 01/31/2017 . Findings: Examination demonstrates a single live intrauterine in cephalic presentation. motion is identified by technologist. Placenta is noted right laterally and grade zero without evidence for placenta previa or abruption. Amniotic fluid volume is normal. Cervix measures 2.7 cm in length and appears closed. No evidence for nuchal cord. Gestational age by LMP 23 weeks 0 days with AKBAR 06/22/2017 . Gestational age by current measurements 22 weeks 4 days with AKBAR 06/25/2017 . FHR equals 141 beats per minute. Estimated weight 515 grams ( 33rd percentile). Anatomical assessment demonstrates normal structures including cranium, choroid plexus, cavum, cerebellum/posterior fossa, facial features, lungs, four-chamber heart/left ventricular outflow tract, diaphragm, stomach, cord insertion/three-vessel cord, kidneys/bladder, and extremities. Limited evaluation of the right cardiac ventricular outflow tract and spine again noted. Impression: Single live intrauterine in cephalic presentation demonstrating appropriate interval growth. Limited evaluation of the right cardiac ventricular outflow tract and spine due to positioning and maternal body habitus. Remainder of the anatomical assessment is complete and normal. Signed by Pb Verdin MD 02/23/2017 03:26 P
== END ==
LOC: M LRY 13:48
PROVIDERS: ATTEND Obstetrics & Gynecology
DX: Z36.2 Encounter for other antenatal screening follow-up (principal)

== ENCOUNTER 2017-03-31 22:21 | Outpatient (CLI) | payer OTHER ==
[~2017-03-31] VITALS: Ht 152.4 cm; Wt 66.4 kg
[2017-03-31 22:37] VITALS: BP 104/67
[2017-04-01 00:34] VITALS: BP 107/69
== END 2017-04-01 03:00 | disposition home or self-care (01) ==
LOC: M LDO 22:21
PROVIDERS: ATTEND Advanced Practice Midwife
DX: O99.89 Other specified diseases and conditions complicating pregnancy, childbirth and the puerperium (principal); Z3A.28 28 weeks gestation of pregnancy; W18.30XA Fall on same level, unspecified, initial encounter; M54.5 Low back pain; Z88.0 Allergy status to penicillin

== ENCOUNTER → 2017-03-31 | Outpatient (CLI) | payer OTHER ==
[2017-03-31 20:06] LABS: MEAN CORPUSCULAR HEMOGLOBIN 31.5 pg (27.0-33.0); MEAN CORPUSCULAR HGB CONC 32.4 g/dl (32.0-36.5); MEAN CORPUSCULAR VOLUME 97.2 fl (80.0-96.0); PLATELET COUNT, AUTOMATED 147 10^3/uL (150-450); RED CELL DISTRIBUTION WIDTH 12.1 % (11.5-14.5); WHITE BLOOD COUNT 8.1 10^3/uL (4.0-10.0)
== END ==
LOC: M LRY 09:27
PROVIDERS: ATTEND Obstetrics & Gynecology
DX: Z34.82 Encounter for supervision of other normal pregnancy, second trimester (principal)

== ENCOUNTER → 2017-04-05 | Outpatient (CLI) | payer OTHER | LOC: M LRY 13:51 | DX: Z36.2 Encounter for other antenatal screening follow-up (principal) ==

== ENCOUNTER → 2017-05-15 | Outpatient (CLI) | payer OTHER | LOC: M LRY 14:08 | DX: O41.03 Oligohydramnios, third trimester (principal); Z36.89 Encounter for other specified antenatal screening; Z3A.33 33 weeks gestation of pregnancy | CPT/HCPCS: 76816 ==

== ENCOUNTER → 2017-05-24 | Outpatient (REF) | payer OTHER | LOC: M LAB REF 13:25 | DX: Z34.83 Encounter for supervision of other normal pregnancy, third trimester (principal) ==

== ENCOUNTER → 2017-05-31 | Outpatient (CLI) | payer OTHER | LOC: M LRY 13:59 | DX: O41.03X1 Oligohydramnios, third trimester, fetus 1 (principal); Z3A.34 34 weeks gestation of pregnancy | CPT/HCPCS: 76816 ==

== ENCOUNTER 2017-06-07 02:56 | Inpatient (IN) | payer OTHER ==
[2017-06-07 04:19] LABS: HEMATOCRIT 34.6 % (36.0-47.0); HEMOGLOBIN 11.5 g/dl (12.0-16.0); MEAN CORPUSCULAR HEMOGLOBIN 29.7 pg (27.0-33.0); MEAN CORPUSCULAR HGB CONC 33.2 g/dl (32.0-36.5); MEAN CORPUSCULAR VOLUME 89.4 fl (80.0-96.0); PLATELET COUNT, AUTOMATED 122 10^3/uL (150-450); RED BLOOD COUNT 3.87 10^6/uL (4.00-5.40); RED CELL DISTRIBUTION WIDTH 13.5 % (11.5-14.5); WHITE BLOOD COUNT 7.4 10^3/uL (4.0-10.0)
[2017-06-07] MEDS: OXYTOCIN DRIP 30 UNITS in APPROPRIATE DILUENT 1 EA IV ×2 (04:30→17:04)
[2017-06-07 04:41] LABS: TOTAL PROTEIN,RANDOM URINE 103.3 MG/DL (0.0-12.0)
[2017-06-07 04:41] LABS: CREATININE,RANDOM URINE 67.1 MG/DL
[2017-06-07 04:42] LABS: ALT/SGPT 10 U/L (12-78); AST/SGOT 13 U/L (7-37); BILIRUBIN,TOTAL 0.1 MG/DL (0.2-1.0); CREATININE FOR GFR 0.73 MG/DL (0.55-1.30); GLOMERULAR FILTRATION RATE > 60.0 (>60); LDH LACTATE DEHYDROGENASE 202 U/L (84-246); URIC ACID 5.2 MG/DL (2.6-6.0)
[2017-06-07] MEDS ORDERED: FENTANYL 2MCG/ML ROPIVACAINE 0.2% IN 0.9% NACL 200ML IVBAG As Ordered (05:04)
[2017-06-07] MEDS ORDERED: LACTATED RINGER'S 1000 ML IV (05:45)
[2017-06-07] MEDS ORDERED: FENTANYL/ROPIVACAINE/NACL BAG 200 ML EPIDURAL (05:45)
[2017-06-07] MEDS ORDERED: EPIDURAL/PCA KEYS XX (05:45)
[2017-06-07] MEDS ORDERED: diphenhydrAMINE INJ 50MG/ML VIAL (J1200) IV (05:45)
[2017-06-07] MEDS ORDERED: ePHEDrine SULFATE 25 MG/5 ML(5MG/ML) SYRINGE IV (05:45)
[2017-06-07] MEDS ORDERED: REFRIGERATOR IV KEYS XX (05:45)
[2017-06-07] MEDS ORDERED: NALOXONE INJ 0.4 MG/1 ML VIAL (J2310) IV (05:45)
[2017-06-07] MEDS ORDERED: EPIDURAL COMMENT XX (05:45)
[2017-06-07] MEDS: LR 1,000 ML IV ×2 (07:40→17:04)
[2017-06-07] MEDS: ONDANSETRON 4MG/2ML VIAL (J2405) IV (08:32)
[2017-06-07] MEDS ORDERED: RHOGAM 300 MCG (1500 IU) INJ (J2790) IM (13:45)
[2017-06-07] MEDS ORDERED: MEASLES,MUMPS,RUBELLA VACCINE INJ (MMR-II) (90707) SC (13:45)
[2017-06-07] MEDS ORDERED: DIBUCAINE 1% OINTMENT 30GM TOP (13:45)
[2017-06-07] MEDS ORDERED: DOCUSATE SODIUM 100 MG CAP PO (13:45)
[2017-06-07] MEDS: IBUPROFEN 800 MG TAB PO (15:59)
[2017-06-07] MEDS: LIDOCAINE 1% MDV INJ 50 ML VIAL INFIL (18:32)
[2017-06-07] MEDS: ACETAMINOPHEN 500 MG TAB PO (18:34)
[2017-06-07] MEDS: CETIRIZINE (ZyrTEC) 10 MG TAB PO (22:29)
[2017-06-08] MEDS: IBUPROFEN 800 MG TAB PO ×2 (07:54→17:22)
[2017-06-08] MEDS: PRENATAL VITAMINS CHEWABLE TABLET PO (07:55)
[2017-06-08] MEDS: CETIRIZINE (ZyrTEC) 10 MG TAB PO (22:11)
[2017-06-09] MEDS: IBUPROFEN 800 MG TAB PO (04:32)
[2017-06-09] MEDS: PRENATAL VITAMINS CHEWABLE TABLET PO (09:00)
== END 2017-06-09 11:42 | disposition home or self-care (01) | DRG 775 ==
LOC: M LDO 02:56 → M LDI 03:37 → M OBS 15:35
PROVIDERS: Advanced Practice Midwife
PROC: 10E0XZZ Delivery of Products of Conception, External Approach (ICD-10-PCS; principal; 2017-06-07)
PROC: 0KQM0ZZ Repair Perineum Muscle, Open Approach (ICD-10-PCS; 2017-06-07)
DX: O41.03X0 Oligohydramnios, third trimester, not applicable or unspecified (principal); Z3A.37 37 weeks gestation of pregnancy; Z37.0 Single live birth; Z88.0 Allergy status to penicillin; O70.1 Second degree perineal laceration during delivery

== ENCOUNTER → 2017-07-12 | Outpatient (REF) | payer OTHER | LOC: M LAB REF 16:55 | DX: N39.0 Urinary tract infection, site not specified (principal) ==

== ENCOUNTER → 2017-07-13 | Outpatient (CLI) | payer OTHER | LOC: M RAD 07:55 | DX: N18.2 Chronic kidney disease, stage 2 (mild) (principal); N20.0 Calculus of kidney; R10.30 Lower abdominal pain, unspecified; N83.202 Unspecified ovarian cyst, left side ==

== ENCOUNTER → 2017-09-14 | Outpatient (REF) | payer OTHER | LOC: M LAB REF 17:12 | DX: Z01.411 Encounter for gynecological examination (general) (routine) with abnormal findings (principal); Z11.51 Encounter for screening for human papillomavirus (HPV); R87.620 Atypical squamous cells of undetermined significance on cytologic smear of vagina (ASC-US) | CPT/HCPCS: G0123 ==

== ENCOUNTER → 2018-01-01 | Outpatient (REF) | payer OTHER | LOC: M LAB REF 17:22 | DX: R30.0 Dysuria (principal) ==

== ENCOUNTER 2018-01-07 14:46 | Emergency (ER) | payer OTHER ==
[2018-01-07 15:32] LABS: KETONE, URINE AUTO RFX NEGATIVE (NEGATIVE); MUCUS, URINE RFX SMALL (NEGATIVE); NITRITE, URINE AUTO RFX NEGATIVE (NEGATIVE); RBC, URINE AUTO RFX 1 /HPF (0-3); SPECIFIC GRAVITY UR AUTO RFX 1.016 (1.002-1.035); SQUAM EPITHELIAL CELL UR AURFX 6 /HPF (0-6); WBC, URINE AUTO RFX 6 /HPF (0-3)
[2018-01-07 15:33] LABS: LEUKOCYTE ESTERASE UR AUTO RFX 2+ (NEGATIVE)
== END 2018-01-07 17:04 | disposition home or self-care (01) ==
LOC: M ED 14:46
DX: N30.00 Acute cystitis without hematuria (principal); R01.1 Cardiac murmur, unspecified; Q51.3 Bicornate uterus; F41.9 Anxiety disorder, unspecified; Z79.3 Long term (current) use of hormonal contraceptives; Z79.899 Other long term (current) drug therapy; Z88.0 Allergy status to penicillin
CPT/HCPCS: 81001

== ENCOUNTER → 2018-07-29 | Outpatient (CLI) | payer OTHER ==
[~2018-07-29] MED LIST changes: +BACT800T5 PO; +BIRTH CONTROL; +COLA100C5 PO; +HYDR-3715 PO; +MOTR200T44 PO; -NORCOTAB PO; +PRENTAB9 PO; +TYLE500T78 PO
--- NOTE | 2018-07-30 13:50 | REP ---
PELVIC ULTRASOUND: Real-time sonographic evaluation of the pelvis is performed utilizing transabdominal technique. The bladder measures 9.2 x 6.5 x 9.8 cm. The uterus measures 8.2 x 2.2 x 4.2 cm. Endometrial thickness is 5 mm with no endometrial fluid collection. Right ovary is normal in size and echotexture 2.8 x 1.8 x 2.3 cm. Left ovary measures 3.2 x 2.5 x 1.7 cm and contains a hyperechoic area measuring 2.2 x 1.1 x 1.2 cm likely related to a dermoid as suggested on prior pelvic ultrasound 03/23/2016. Blood flow is seen in each ovary with duplex Doppler evaluation, with no torsion. There is no other evidence of adnexal mass or free fluid. IMPRESSION: Hyperechoic area in the left ovary 2.2 x 1.1 x 1.2 cm likely related to a dermoid. Electronically Signed by Greg Agarwal MD 07/31/2018 10:23 A
== END ==
LOC: M LRY 13:53
PROVIDERS: ATTEND Nurse Practitioner Family
DX: R93.5 Abnormal findings on diagnostic imaging of other abdominal regions, including retroperitoneum (principal)

== ENCOUNTER → 2018-09-09 | Outpatient (REF) | payer OTHER | LOC: M SFHCLERA 14:58 | PROVIDERS: ATTEND Nurse Practitioner Family | DX: R30.0 Dysuria (principal) | CPT/HCPCS: 81002; 87086; G0463 ==

== ENCOUNTER → 2018-09-20 | Outpatient (REF) | payer OTHER | LOC: M SMT 17:03 | PROVIDERS: ATTEND Nurse Practitioner Women's Health | DX: R30.0 Dysuria (principal) | CPT/HCPCS: 87109; 87480; 87510; 87660; G0463 ==

== ENCOUNTER → 2018-09-30 | Outpatient (REF) | payer OTHER | LOC: M LAB REF 17:24 | PROVIDERS: ATTEND Advanced Practice Midwife | DX: Z12.4 Encounter for screening for malignant neoplasm of cervix (principal) ==

== ENCOUNTER → 2018-10-03 | Outpatient (CLI) | payer OTHER ==
--- NOTE | 2018-10-03 15:49 | REP ---
Clinical: Dysuria and pelvic pain. Technique: Real time magana scale and color ultrasound examination using curved array transducer. Findings: Bilateral kidneys are normal in contour, size, echogenicity, and reniform shape without hydronephrosis, nephrolithiasis, cystic or renal mass lesion. No perinephric fluid collection identified. Right kidney measures 10.0 x 4.9 x 3.7 cm. Left kidney measures 10.0 x 4.4 x 3.7 cm. Bladder is essentially normal in appearance and bilateral ureteral jets are identified. No bladder mass lesion is appreciated. Prevoid bladder measures 9.8 x 9.2 x 7.0 cm (412 ml). Postvoid bladder measures 3.8 x 5.9 x 2.6 cm (38 ml). Postvoid residual equals 9%. Impression: Normal renal and bladder ultrasound. Electronically Signed by Pb Verdin MD 10/03/2018 03:41 P
[2018-10-03 16:42] LABS: APPEARANCE, URINE CLEAR (CLEAR); BACTERIA, URINE AUTO NEGATIVE (NEGATIVE); BILIRUBIN, URINE AUTO NEGATIVE (NEGATIVE); BLOOD, URINE BLOOD NEGATIVE (NEGATIVE); COLOR, URINE COLORLESS (YELLOW); GLUCOSE, URINE (UA) AUTO NEGATIVE (NEGATIVE); KETONE, URINE AUTO NEGATIVE (NEGATIVE); LEUKOCYTE ESTERASE, URINE AUTO NEGATIVE (NEGATIVE); NITRITE, URINE AUTO NEGATIVE (NEGATIVE); PROTEIN, URINE AUTO NEGATIVE (NEGATIVE); RBC, URINE AUTO 0 /HPF (0-3); SQUAMOUS EPITHELIAL CELL UR AU 0 /HPF (0-6); UROBILINOGEN, URINE AUTO 0.2 mg/dL (0.0-2.0); WBC, URINE AUTO 0 /HPF (0-3)
== END ==
LOC: M LRY 14:05
PROVIDERS: ATTEND Nurse Practitioner Women's Health
DX: R30.0 Dysuria (principal); R10.2 Pelvic and perineal pain; Z87.442 Personal history of urinary calculi